=== PATIENT | male | born 1945 ===

== ENCOUNTER 2016-08-03 09:21 | Emergency (ER) | payer MEDICARE, BC ==
--- NOTE | 2016-08-03 10:35 | UC ---
Lower Extremity/Ankle HPI - HPI Summary HPI Summary: Left great toe pain since 08/01/16, worse today, now feels like whole foot is swelling. Hx gout. Feels like his usual gout. No fever. - History of Current Complaint Stated Complaint: LEFT FOOT Time Seen by Provider: 08/03/16 10:24 Hx Obtained From: Patient, Family/Manufacturing Technician - Onset/Duration: Gradual Onset, Lasting Days, Still Present Severity Initially: Moderate Severity Currently: Moderate Pain Intensity: 7 - with weight bearing Pain Scale Used: 0-10 Numeric Aggravating Factor(s): Standing, Ambulation Able to Bear Weight: Yes Related History: Other - hx gout - Risk Factors Gout Risk Factors: Male DVT Risk Factors: Negative Septic Arthritis Risk Factor: Negative - Allergies/Home Medications Allergies/Adverse Reactions: Allergies Allergy/AdvReac Type Severity Reaction Status Date / Time No Known Allergies Allergy Verified 08/03/16 10:23 Home Medications: Home Medications Aspirin [Aspirin 81 MG TAB] 81 mg PO DAILY 08/03/16 [History Confirmed 08/03/16] Colchicine* [Colcrys*] 0.6 mg PO Q8H PRN 08/03/16 [History Confirmed 08/03/16] Ezetimibe TAB* [Zetia TAB*] 10 mg PO DAILY 08/03/16 [History Confirmed 08/03/16] [place]-3 Fatty Acids [Fish Oil] 1,000 mg PO DAILY 08/03/16 [History Confirmed ] Polyethylene Glycol 3350* [Miralax*] 17 gm PO DAILY PRN 08/03/16 [History Confirmed 08/03/16] SitaGLIPtin (NF) [Januvia (NF)] 25 mg PO DAILY 08/03/16 [History Confirmed 08/03] glipiZIDE TAB* [Glucotrol TAB*] 5 mg PO DAILY 08/03/16 [History Confirmed ] PMH/Surg Hx/FS Hx/Imm Hx Endocrine History Of: Reports: Diabetes - ON MEDS Cardiovascular History Of: Reports: Hypertension - not on meds 07/2016 Denies: Pacemaker/ICD - Surgical History Surgical History: Yes Surgery Procedure, Year, and Place: VASECTOMY 25 YRS AGO; - Family History Known Family History: Positive: Other - no known hx gout - Social History Occupation: Retired Lives: With Family Alcohol Use: None Substance Use Type: None Smoking Status (MU): Never Smoked Tobacco Review of Systems Constitutional: Negative Skin: Negative Eyes: Negative ENT: Negative Respiratory: Negative Cardiovascular: Negative Gastrointestinal: Negative Genitourinary: Negative Motor: Negative Neurovascular: Negative Musculoskeletal: Arthralgia Neurological: Negative Psychological: Negative All Other Systems Reviewed And Are Negative: Yes Physical Exam Triage Information Reviewed: Yes Appearance: Well-Appearing, Well-Nourished, Pain Distress Vital Signs: elevated BP noted Vital Signs Reviewed: Yes Eyes: Positive: Conjunctiva Clear ENT: Positive: Normal ENT inspection Neck: Positive: Supple Respiratory: Positive: No respiratory distress Cardiovascular: Positive: RRR, No Murmur, Brisk Capillary Refill Musculoskeletal: Positive: Strength Intact, ROM Intact, Other: - redness, swelling of left great toe and foot Neurological: Positive: Alert, Muscle Tone Normal, Other: - sensation intact Psychological Exam: Normal Skin: Positive: Other - redness great toe Lower Extremity Course/Dx - Differential Dx/Diagnosis Differential Diagnosis/HQI/PQRI: Arthritis, Cellulitis, Gout, Sprain, Strain Provider Diagnoses: acute gout. elevated BP with dx of HTN Discharge - Discharge Plan Condition: Stable Disposition: HOME Prescriptions: Colchicine* [Colcrys*] 0.6 mg PO DAILY #30 tab predniSONE TAB* [Deltasone TAB*] 40 mg PO DAILY #10 tab Patient Education Materials: Low Purine Diet (ED), Gout (ED) Referrals: Jet Levi MD [Primary Care Provider] - 2 Days (see Dr. Levi regarding your elevated BP in 2 days-1 month)
[2016-08-03 10:53] VITALS: BP 138/79
== END 2016-08-03 10:59 | disposition home or self-care (01) ==
LOC: UCCORT 09:21
DX: M10.9 Gout, unspecified (principal); I10 Essential (primary) hypertension
CPT/HCPCS: 99212; G0463